=== PATIENT | female | born 1995 | race Caucasian/White ===

== ENCOUNTER 2017-04-29 08:50 | Outpatient (CLI) ==
[2017-04-29 09:23] LABS: CHOL/HDL RATIO 4.3 (4.5-5.5)
== END 2017-04-29 08:51 | disposition home or self-care (01) ==
LOC: LAB 08:50
PROVIDERS: ATTEND Nurse Practitioner Family
DX: Z02.1 Encounter for pre-employment examination (principal)
CPT/HCPCS: 36415; 80061; 82947